=== PATIENT | male | born 1980 | race Caucasian/White ===

== ENCOUNTER 2018-02-17 15:19 | Emergency (ER) | payer OTHER ==
[~2018-02-17] VITALS: Ht 190.5 cm; Wt 99.8 kg
[2018-02-17] MEDS ORDERED: HTN MED (15:31)
[2018-02-17] MEDS ORDERED: CHOLESTEROL MED (15:31)
[2018-02-17] MEDS ORDERED: NAPROSYN500 MG PO (16:18)
[2018-02-17] MEDS ORDERED: ROBAXIN500 MG PO (16:18)
[2018-02-17 16:52] VITALS: BP 126/76
== END 2018-02-17 16:53 | disposition home or self-care (01) ==
LOC: M.ERS 15:19
DX: S16.1XXA Strain of muscle, fascia and tendon at neck level, initial encounter (principal); S39.012A Strain of muscle, fascia and tendon of lower back, initial encounter; S70.02XA Contusion of left hip, initial encounter; E78.00 Pure hypercholesterolemia, unspecified; I10 Essential (primary) hypertension; V49.59XA Passenger injured in collision with other motor vehicles in traffic accident, initial encounter; Y93.89 Activity, other specified; Y92.89 Other specified places as the place of occurrence of the external cause; Y99.8 Other external cause status

== ENCOUNTER 2020-05-04 08:04 | Emergency (ER) | payer OTHER ==
[~2020-05-04] VITALS: Ht 193 cm; Wt 99.8 kg
[~2020-05-04 08:04] MED LIST: CHOLESTEROL MED; HTN MED; NAPROSYN500 MG PO; ROBAXIN500 MG PO
[2020-05-04] MEDS ORDERED: PAXIL20 MG PO (08:15)
[2020-05-04] MEDS ORDERED: BUSPIRONE HCL10 MG PO (08:15)
[2020-05-04 08:36] LABS: ABSOLUTE BASOPHILS 0.1 thou/uL (0.0-0.2); ABSOLUTE MONOCYTES 0.2 thou/uL (0.0-1.2); ABSOLUTE NEUTROPHILS 5.6 thou/uL (1.6-8.1); BASOPHILS 0.8 %; EOSINOPHILS 0.1 %; HEMATOCRIT 39.2 % (42.0-52.0); HEMOGLOBIN 13.4 gm/dL (14.0-18.0); LYMPHOCYTES 25.4 %; MCH 30.4 pg (26.0-34.0); MCV 89.2 fL (80.0-100.0); MONOCYTES 2.4 %; MPV 8.4 fl. (7.2-11.1); NUCLEATED RBCS 0 /100WBC; PLATELET COUNT* 243 thou/uL (150-400); POLYS 71.3 %; RBC 4.39 mil/uL (4.50-6.00); RDW-CV 13.3 % (10.5-14.5); WBC 7.9 thou/uL (4.0-11.0)
[2020-05-04 08:43] LABS: ALBUMIN 4.7 g/dL (3.4-5.0); CREATININE 1.1 mg/dL (0.6-1.3); TOTAL BILIRUBIN 0.6 mg/dL (<0.1-1.0); TOTAL PROTEIN 8.4 g/dL (6.4-8.2)
[2020-05-04 08:49] LABS: URINE BILIRUBIN NEGATIVE (Negative); URINE BLOOD NEGATIVE (Negative); URINE CLARITY CLEAR; URINE COLOR YELLOW; URINE GLUCOSE-RANDOM NEGATIVE (Negative); URINE KETONES NEGATIVE (Negative); URINE LEUKOCYTES-REFLEX NEGATIVE (Negative); URINE NITRITE-REFLEX NEGATIVE (Negative); URINE PROTEIN NEGATIVE (Negative); URINE SPECIFIC GRAVITY 1.015 (1.005-1.030); URINE UROBILINOGEN 0.2 E.U./dl (0.2-1.0)
[2020-05-04 09:17] LABS: POTASSIUM 3.6 mmol/L (3.5-5.1)
[2020-05-04] MEDS ORDERED: ZOFRAN ODT4 MG SUBLING (09:34)
[2020-05-04 09:49] VITALS: BP 141/77
== END 2020-05-04 09:49 | disposition home or self-care (01) ==
LOC: M.ERS 08:04
PROVIDERS: Family Medicine
DX: R11.2 Nausea with vomiting, unspecified (principal); Z20.828 Contact with and (suspected) exposure to other viral communicable diseases; I10 Essential (primary) hypertension; E78.00 Pure hypercholesterolemia, unspecified